=== PATIENT | female | born 1985 | race Caucasian/White ===

== ENCOUNTER 2019-05-17 07:35 | Emergency (ER) | payer BC ==
[2019-05-17 08:01] VITALS: BP 105/62
--- NOTE | 2019-05-17 08:20 | UC ---
Throat Pain/Nasal Shaan HPI - HPI Summary HPI Summary: sore throat x 3 days bilateral ear pain , right worse than left + nasal congestion , pnd no cough , no fever, no chills - History of Current Complaint Chief Complaint: UCGeneralIllness Stated Complaint: SORE THROAT,LEFT EAR CONCERN Time Seen by Provider: 05/17/19 08:03 Hx Obtained From: Patient Hx Last Menstrual Period: unknown, pt has IUD ?: No Onset/Duration: Gradual Onset, Lasting Days - 3, Still Present Severity: Moderate Pain Intensity: 4 Cough: None Associated Signs & Symptoms: Positive: Nasal Discharge. Negative: Wheezing, Hoarseness, Sinus Discomfort, Fever, Vomiting - Allergies/Home Medications Allergies/Adverse Reactions: Allergies Allergy/AdvReac Type Severity Reaction Status Date / Time amoxicillin Allergy Difficulty Verified 05/17/19 08:01 Breathing ciprofloxacin Allergy Rash Verified 05/17/19 08:01 Penicillins Allergy Difficulty Verified 05/17/19 08:01 Breathing Home Medications: Home Medications Valacyclovir HCl [Valtrex] 1 tab PO DAILY 05/17/19 [History Confirmed 05/17/19] PMH/Surg Hx/FS Hx/Imm Hx Previously Healthy: Yes - Surgical History Surgical History: Yes Surgery Procedure, Year, and Place: hernia repair 2010 - Family History Known Family History: Negative: Diabetes - Social History Alcohol Use: Occasionally Substance Use Type: None Smoking Status (MU): Former Smoker Amount Used/How Often: 1/2 ppd When Did the Patient Quit Smoking/Using Tobacco: 2016 Review of Systems All Other Systems Reviewed And Are Negative: Yes Constitutional: Positive: Negative Skin: Positive: Negative Eyes: Positive: Negative ENT: Positive: Sore Throat, Nasal Discharge Respiratory: Positive: Negative Cardiovascular: Positive: Negative Is Patient Immunocompromised?: No Physical Exam Triage Information Reviewed: Yes Appearance: Well-Appearing, No Pain Distress, Well-Nourished Vital Signs: Initial Vital Signs Temp 98.6 F 05/17/19 07:56 Pulse 65 05/17/19 07:56 Resp 14 05/17/19 07:56 BP 105/62 05/17/19 07:56 Pulse Ox 100 05/17/19 07:56 Vital Signs Reviewed: Yes Eye Exam: Normal Eyes: Positive: Conjunctiva Clear ENT: Positive: Normal ENT inspection, Hearing grossly normal, Pharyngeal erythema, TMs normal. Negative: TM bulging, TM dull, TM red Neck: Positive: Supple, Nontender, No Lymphadenopathy Respiratory: Positive: Chest non-tender, Lungs clear, Normal breath sounds Cardiovascular: Positive: RRR, No Murmur, Pulses Normal Abdominal Exam: Normal Skin Exam: Normal Throat Pain/Nasal Course/Dx - Differential Dx/Diagnosis Provider Diagnosis: Viral pharyngitis Discharge - Sign-Out/Discharge Documenting (check all that apply): Patient Departure All imaging exams completed and their final reports reviewed: No Studies - Discharge Plan Condition: Stable Disposition: HOME Patient Education Materials: Pharyngitis (ED) Referrals: No Primary Care Phys,NOPCP [Primary Care Provider] - If Needed Additional Instructions: viral pharyngitis no need for antibiotics - Billing Disposition and Condition Condition: STABLE Disposition: Home
== END 2019-05-17 08:26 | disposition home or self-care (01) ==
LOC: UCCORT 07:35
DX: J02.8 Acute pharyngitis due to other specified organisms (principal); H92.03 Otalgia, bilateral; R09.81 Nasal congestion; Z88.1 Allergy status to other antibiotic agents; Z88.0 Allergy status to penicillin; Z87.891 Personal history of nicotine dependence
CPT/HCPCS: 87651; 99201; G0463